=== PATIENT | female | born 1995 | race Two or more races ===

== ENCOUNTER 2016-10-05 08:49 | Emergency (ER) | payer OTHER ==
[2016-10-05 08:55] VITALS: BP 119/67
--- NOTE | 2016-10-05 09:18 | PHYS DOC ---
Adult General Chief Complaint Chief Complaint: EARACHE/EAR PAIN HPI HPI 21-year-old lady presents with right earache for the past 2 days. The right ear hurts when she tugs on it and she continues to have the pain. Review of Systems Review of Systems Constitutional: Denies fever or chills [] Eyes: Denies change in visual acuity, redness, or eye pain [] HENT: Denies nasal congestion or sore throat there is inflammation in the right external canal as well as the right tympanic membrane Respiratory: Denies cough or shortness of breath [] Cardiovascular: No additional information not addressed in HPI [] GI: Denies abdominal pain, nausea, vomiting, bloody stools or diarrhea [] : Denies dysuria or hematuria [] Musculoskeletal: Denies back pain or joint pain [] Integument: Denies rash or skin lesions [] Neurologic: Denies headache, focal weakness or sensory changes [] Endocrine: Denies polyuria or polydipsia [] Physical Exam Physical Exam Constitutional: Well developed, well nourished, no acute distress, non-toxic appearance. [] HENT: Normocephalic, atraumatic, there is tenderness of the right external canal and the right tympanic membrane is inflamed as well, oropharynx moist, no oral exudates, nose normal. [] Eyes: PERRLA, EOMI, conjunctiva normal, no discharge. [] Neck: Normal range of motion, no tenderness, supple, no stridor. [] Cardiovascular:Heart rate regular rhythm, no murmur [] Lungs & Thorax: Bilateral breath sounds clear to auscultation [] Abdomen: Bowel sounds normal, soft, no tenderness, no masses, no pulsatile masses. [] Skin: Warm, dry, no erythema, no rash. [] Back: No tenderness, no CVA tenderness. [] Extremities: No tenderness, no cyanosis, no clubbing, ROM intact, no edema. [] Neurologic: Alert and oriented X 3, normal motor function, normal sensory function, no focal deficits noted. [] Psychologic: Affect normal, judgement normal, mood normal. [] EKG EKG [] Radiology/Procedures Radiology/Procedures [] Impressions: Right otitis externa and media Course & Med Decision Making Course & Med Decision Making An Ear Wick Was placed in the ear and the patient was placed on Cortisporin Otic drops as well as amoxicillin 500 mg by mouth every 8 hours Pertinent Labs and Imaging studies reviewed. (See chart for details) [] Dragon Disclaimer Dragon Disclaimer This chart was dictated in whole or in part using Voice Recognition software in a busy, high-work load, and often noisy Emergency Department environment. It may contain unintended and wholly unrecognized errors or omissions. Departure Departure: Referrals: DAMARIS RAMOS MD (PCP) LOPEZ RUIZ MD Oct 05, 2016 09:18
[2016-10-05] MEDS ORDERED: AMOX500T PO (09:24)
[2016-10-05] MEDS ORDERED: AMOX500C PO (09:24)
[2016-10-05] MEDS ORDERED: NEOMYCIN/POLYMYXIN/HC OTIC SUSPENSION 10ML BOTTLE. AD ONE (09:35)
== END 2016-10-05 09:48 | disposition home or self-care (01) ==
LOC: ER 08:49
DX: H66.91 Otitis media, unspecified, right ear (principal); H60.91 Unspecified otitis externa, right ear
CPT/HCPCS: 99283

== ENCOUNTER 2019-04-03 21:48 | Emergency (ER) | payer OTHER ==
[~2019-04-03 21:48] MED LIST: AMOX500C PO; AMOX500T PO
[2019-04-03] MEDS ORDERED: ALBUTEROL SULFATE 8GM INHALER. INH ONE (22:30)
[2019-04-03] MEDS ORDERED: predniSONE 10 MG TABLET PO ONE (22:30)
[2019-04-03] MEDS ORDERED: AZITHROMYCIN 250 MG TABLET. PO ONE (22:45)
[2019-04-03] MEDS ORDERED: PRED50TA PO (22:49)
[2019-04-03] MEDS ORDERED: AZIT250T PO (22:49)
[2019-04-03 23:07] LABS: BARBITURATES NEG (NEG); BENZODIAZEPINES NEG (NEG); CANNABINOIDS NEG (NEG); COCAINE NEG (NEG); METHADONE NEG (NEG); OPIATES NEG (NEG); PHENCYCLIDINE NEG (NEG)
[2019-04-03 23:11] LABS: BACTERIA,URINE 0 /HPF (0-FEW); BILIRUBIN,URINE NEG (NEG); CLARITY,URINE CLEAR; COLOR,URINE YELLOW; GLUCOSE,URINE NEG (NEG); NITRITE,URINE NEG (NEG); RBC,URINE 0 /HPF (0-2); SQUAMOUS EPITHELIAL CELL,UR FEW /LPF; WBC,URINE OCC /HPF (0-4)
[2019-04-03 23:13] LABS: AMPHETAMINE/METHAMPHETAMINE NEG (NEG)
[2019-04-03 23:45] VITALS: BP 121/67
--- NOTE | 2019-04-03 23:55 | PHYS DOC ---
Past History Past Medical History: No Pertinent History, Other Additional Past Medical Histor: RHEUMATOID ARTHRITIS Past Surgical History: No Surgical History, Other Additional Past Surgical Histo: FOOT Alcohol Use: None Drug Use: None Adult General Chief Complaint Chief Complaint: COUGH..." I ve been sick for more than two weeks.. the whole family got this viral infection.. .but the kids got well... but I never did.. I am coughing all the time... congestion.. runny nose.. sore throat.. I ve never gotten better..." HPI HPI Patient is a 23 year old female who presents with history of malaise, arthralgia, cough, wheezing, congestion, rhinorrhea, and myalgia.. Patient children who have been sick with similar complaints are now over their upper respiratory illness. She did not receive a flu vaccination this year. No recent travel. No history immunosuppression. Review of Systems Review of Systems Constitutional: History of fever or chills [] Eyes: Denies change in visual acuity, redness, or eye pain [] HENT: History of nasal congestion and sore throat [] Respiratory: History of cough and wheezing[] Cardiovascular: No additional information not addressed in HPI [] GI: Denies abdominal pain, nausea, vomiting, bloody stools or diarrhea [] : Denies dysuria or hematuria [] Musculoskeletal: Denies back pain or joint pain []. Has some complaints of myalgia and arthralgia Integument: Denies rash or skin lesions [] Neurologic: Denies headache, focal weakness or sensory changes [] Endocrine: Denies polyuria or polydipsia [] All other systems were reviewed and found to be within normal limits, except as documented in this note. Family History Family History Children have had a upper respiratory illness Current Medications Current Medications Current Medications Medications (Trade) Dose Ordered Sig/Curry Start Time Stop Time Status Last Admin Dose Admin Albuterol Sulfate (Ventolin Hfa Inhaler) 2 puff 1X ONCE 04/03/19 22:30 04/03/19 22:31 DC 04/03/19 22:30 2 PUFF Azithromycin (Zithromax) 500 mg 1X ONCE 04/03/19 22:45 04/03/19 22:46 DC 04/03/19 22:54 500 MG Prednisone (Prednisone) 50 mg 1X ONCE 04/03/19 22:30 04/03/19 22:31 DC 04/03/19 22:54 50 MG Allergies Allergies Allergies Coded Allergies Type Severity Reaction Last Updated Verified No Known Drug Allergies 10/05/16 No Physical Exam Physical Exam Constitutional: Moderate acute distress, non-toxic appearance. [] HENT: Normocephalic, atraumatic, bilateral external ears normal, oropharynx moist, injected pharynx, no oral exudates, nose swollen turbinates and clear rhinorrhea Eyes: PERRLA, EOMI, conjunctiva normal, no discharge. [] Neck: Normal range of motion, no tenderness, supple, no stridor. [] Cardiovascular:Heart rate regular rhythm, no murmur [] Lungs & Thorax: Bilateral breath sounds equal at apex with scattered wheezing throughout on auscultation [] Abdomen: Bowel sounds normal, soft, no tenderness, no masses, no pulsatile masses. [] Skin: Warm, dry, no erythema, no rash. [] Back: No tenderness, no CVA tenderness. [] Extremities: No tenderness, no cyanosis, no clubbing, ROM intact, no edema. [] Neurologic: Alert and oriented X 3, normal motor function, normal sensory function, no focal deficits noted. [] Psychologic: Affect normal, judgement normal, mood normal. [] Current Patient Data Vital Signs Vital Signs Date Time Temp Pulse Resp B/P (MAP) Pulse Ox O2 Delivery O2 Flow Rate FiO2 04/03/19 23:00 97 04/03/19 22:13 98.6 93 18 Room Air Lab Results Laboratory Tests Test 04/03/19 22:15 04/03/19 22:30 04/03/19 22:34 Urine Collection Type Unknown Urine Color Yellow Urine Clarity Clear Urine pH 7.0 Urine Specific Browder >=1.030 Urine Protein 100 mg/dl (NEG-TRACE) Urine Glucose (UA) Neg mg/dL (NEG) Urine Ketones (Stick) Trace mg/dL (NEG) Urine Blood Trace (NEG) Urine Nitrite Neg (NEG) Urine Bilirubin Neg (NEG) Urine Urobilinogen Dipstick 1.0 mg/dL (0.2 mg/dL) Urine Leukocyte Esterase Neg (NEG) Urine RBC 0 /HPF (0-2) Urine WBC Occ /HPF (0-4) Urine Squamous Epithelial Cells Few /LPF Urine Bacteria 0 /HPF (0-FEW) Urine Opiates Screen Neg (NEG) Urine Methadone Screen Neg (NEG) Urine Barbiturates Neg (NEG) Urine Phencyclidine Screen Neg (NEG) Urine Amphetamine/Methamphetamine Neg (NEG) Urine Benzodiazepines Screen Neg (NEG) Urine Cocaine Screen Neg (NEG) Urine Cannabinoids Screen Neg (NEG) Urine Ethyl Alcohol Neg (NEG) Group A Streptococcus Rapid Negative (NEGATIVE) POC Urine HCG, Qualitative hcg negative (Negative) EKG EKG [] Radiology/Procedures Radiology/Procedures I interpretation ejection x-ray shows no large infiltrate or acute cardiopulmonary findings.[] Course & Med Decision Making Course & Med Decision Making Pertinent Labs and Imaging studies reviewed. (See chart for details) Take Tylenol and ibuprofen as needed for discomfort. Take Benadryl 50 mg up 4 times a day for congestion and rhinorrhea. Patient uses MDI 2 puffs 4 times a day. Patient take prednisone 50 mg a day for 5 days. Follow-up primary care. Return if any concerns. Take his Zithromax 250 mg daily for 5 days. Impression: 1. Upper respiratory infection 2. Bronchitis 3. Viral syndrome [] Dragon Disclaimer Dragon Disclaimer This electronic medical record was generated, in whole or in part, using a voice recognition dictation system. Departure Departure: Impression: Primary Impression: Viral syndrome Additional Impressions: Upper respiratory infection Bronchitis Disposition: HOME/RESIDENCE PRIOR TO ADM Condition: GUARDED Patient Instructions: Upper Respiratory Infection, Adult Additional Instructions: Use MDI two puffs four times a day. Take Prednisone 50 daily. Tylenol and Ibuprofen for discomfort. Benadryl 50 mg up 4 x day for cough and drainage. Take Zithromax 250 daily. Follow up with primary. Scripts Azithromycin (ZITHROMAX) 250 Mg Tablet 250 MG PO DAILY for ANTI-BIOTIC for 5 Days, #5 TAB 0 Refills Prov: MARIBEL ESCALANTE MD 04/03/19 Prednisone (PREDNISONE) 50 Mg Tablet 50 MG PO DAILY for reactive airway for 5 Days, #5 TAB Prov: MARIBEL ESCALANTE MD 04/03/19 Jong Disclaimer This chart was dictated in whole or in part using Voice Recognition software in a busy, high-work load, and often noisy Emergency Department environment. It may contain unintended and wholly unrecognized errors or omissions. Dragon Disclaimer This chart was dictated in whole or in part using Voice Recognition software in a busy, high-work load, and often noisy Emergency Department environment. It may contain unintended and wholly unrecognized errors or omissions. Problem Qualifiers MARIBEL ESCALANTE MD Apr 03, 2019 23:55
[2019-04-04 00:30] LABS: INFLUENZA A PATIENT NEGATIVE (NEGATIVE); INFLUENZA B PATIENT NEGATIVE (NEGATIVE)
--- NOTE | 2019-04-04 03:43 | RAD ---
Exam: Chest 2 views INDICATION: Cough, fever TECHNIQUE: Frontal and lateral views the chest Comparisons: None FINDINGS: The cardiomediastinal silhouette and pulmonary vessels are within normal limits. The lung and pleural spaces are clear. IMPRESSION: No acute cardiopulmonary process. Electronically signed by: Yaakov Webster MD (04/04/2019 3:40 AM) [id number]
== END 2019-04-03 23:47 | disposition home or self-care (01) ==
LOC: ER 21:48
DX: B34.9 Viral infection, unspecified (principal); J06.9 Acute upper respiratory infection, unspecified; J40 Bronchitis, not specified as acute or chronic; M06.9 Rheumatoid arthritis, unspecified
CPT/HCPCS: 36415; 71046; 80307; 81001; 81025; 87070; 87804; 87880; 94640; 99285; J0456; J7512; J7613; 94664